=== PATIENT | female | born 1975 | race Caucasian/White ===

== ENCOUNTER 2024-06-05 14:24 | Emergency (ER) | payer MEDICAID, SELFPAY ==
--- NOTE | 2024-06-05 14:32 | EKG_ITS ---
[facility] Test Date: 2024-06-05 Pat Name: LAUREN BURRELL Department: Room: - Gender: Female [employer] Technician: : 1975 Requested By: Brian Arshad (ANITRA) Order Number: [id number] Reading MD: Brian Arshad (ACCOUNTS PAYABLE ASSISTANT) Measurements Intervals [place] Rate: 99 P: 23 AK: 132 QRS: -41 QRSD: 88 T: 17 QT: 340 QTc: 438 Interpretive Statements SINUS RHYTHM MARKED LEFT AXIS DEVIATION [QRS AXIS < -30] MINIMAL VOLTAGE CRITERIA FOR LVH, CONSIDER NORMAL VARIANT [MEETS CRITERIA IN ONE OF: R(aVL), S(V1), R(V5), R(V5/V6)+S(V1)] POSSIBLE ANTERIOR MYOCARDIAL INFARCTION , PROBABLY OLD [30 ms Q WAVE IN V3/V4, OR R < 0.2 mV IN V4] Compared to ECG 06/14/2022 07:12:14 Left-axis deviation now present Myocardial infarct finding now present /store/S0/[id number]/ecg/[id number].pdf
[2024-06-05 14:46] VITALS: BP 153/106; BP 163/109; PULSE 96; RESP 20; TEMP 37.1; O2SAT 99; BMI 42.8
--- NOTE | 2024-06-05 15:05 | XR_ITS ---
Examination: PA lateral chest 2 views TECHNIQUE: Upright PA lateral chest 2 views Exam date and time: June 05, 2024 1530 hours INDICATIONS: Onset chest pain today. FINDINGS: Early bilateral perihilar pneumonia Normal heart size The osseous structures are intact IMPRESSION: Early bilateral perihilar pneumonia
--- NOTE | 2024-06-05 15:05 | PD.EDRME ---
Rapid Medical Screening Exam RME Arrival date/time: 06/05/24 14:24 49-year-old female presents to the emergency department complains of palpitations Chief Complaint: Chest Pain Vital signs: Vital Signs Temperature 98.7 F 06/05/24 14:46 Pulse Rate 96 06/05/24 14:46 Respiratory Rate 20 06/05/24 14:46 Blood Pressure 153/106 H 06/05/24 14:46 Pulse Oximetry (%) 99 06/05/24 14:46 Oxygen Delivery Method Room Air 06/05/24 14:46
[2024-06-05 16:06] LABS: Basophils % (Auto) 0 % (0-2.5); Eosinophils # (Auto) 0.1 Thou/mm3 (0.0-0.5); Eosinophils % (Auto) 1 % (0-10); Hemoglobin 13.5 g/dL (12.0-16.0); Immature Granulocytes % (Auto) 0 % (0-0); Immature Granulocytes Auto 0.02 Thou/mm3 (0.00-0.00); Lymphocytes # (Auto) 2.4 Thou/mm3 (1.0-4.8); Lymphocytes % (Auto) 30 % (10-50); Mean Corpuscular HGB Conc 33.8 g/dl (31.0-37.0); Mean Corpuscular Hemoglobin 28.1 pg (25.0-35.0); Mean Corpuscular Volume 83 fL (80-100); Monocytes # (Auto) 0.5 Thou/mm3 (0.0-0.8); Monocytes % (Auto) 6 % (0-12); Neutrophils # (Auto) 4.9 Thou/mm3 (1.8-7.7); Neutrophils % (Auto) 62 % (37-80); Nucleated Red Blood Cell % 0 /100 WBC (0); Platelet Count 331 Thou/mm3 (140-440); RDW Standard Deviation 42.8 fL (36.4-46.3); White Blood Count 7.8 Thou/mm3 (3.6-11.0)
[2024-06-05 16:35] LABS: Alanine Aminotransferase 75 U/L (10-49); Albumin, Serum 4.9 gm/dL (3.5-5.0); Albumin/Globulin Ratio 1.7 (1.2-2.2); Alkaline Phosphatase 76 U/L (46-116); Anion Gap 9 (7-16); Aspartate Amino Transferase 41 U/L (0-34); BUN/Creatinine Ratio 17 Ratio (12-20); Bilirubin,Total 0.7 mg/dL (0.3-1.2); Blood Urea Nitrogen 15 mg/dL (9-23); Calcium 9.8 mg/dL (8.3-10.6); Calcium (Corrected) 9.8 mg/dL (8.5-10.1); Carbon Dioxide 29.4 mMol/L (20.0-31.0); Chloride 98 mMol/L (98-107); Creatinine (Component) 0.9 mg/dL (0.6-1.3); Estimated Creatinine Clearance 111.4 mL/min (>60); Globulin 2.9 gm/dL (2.3-3.5); Glucose 97 mg/dL (74-106); Osmolality,Calculated 272 (275-295); Potassium 3.6 mMol/L (3.4-5.1); Sodium 136 mMol/L (136-145); Thyroid Stimulating Hormone 1.41 uIU/mL (0.55-4.78); Total Protein 7.8 gm/dL (5.7-8.2); Troponin I < 0.002 ng/mL (0.0-0.045); eGFR > 60 See Note
--- NOTE | 2024-06-05 19:45 | PC.NURSE ---
NO ANSWER FOR MAIN ED
--- NOTE | 2024-06-05 20:05 | PC.NURSE ---
NO ANSWER FOR MAIN ED
== END 2024-06-05 20:07 | disposition left against medical advice (07) ==
LOC: SERX 15:50
PROVIDERS: Nurse Practitioner Primary Care; Emergency Provider Emergency Medicine; PCP Nurse Practitioner Family
DX: R07.9 Chest pain, unspecified (principal); R00.2 Palpitations; Z53.29 Procedure and treatment not carried out because of patient's decision for other reasons
CPT/HCPCS: 36415; 71046; 80053; 84439; 84443; 84484; 85025; 93005; 99281

== ENCOUNTER 2024-06-07 19:54 | Emergency (ER) | payer MEDICAID, SELFPAY ==
[2024-06-07 19:55] VITALS: BMI 42.8
[2024-06-07 21:02] VITALS: BP 156/103; PULSE 88; RESP 20; TEMP 37.2; O2SAT 97
--- NOTE | 2024-06-07 22:38 | EDNOTE_ITS ---
<Statement entered by Pina Eagle MD - 06/08/24 18:36> As co-signing physician, I was present and available for consult prn. I concur with the plan and care as documented by the midlevel provider. ED Back Injury Pain RME/HPI General Chief Complaint: Back Pain/Injury Stated Complaint: BACK PAIN Time Seen by Provider: 06/07/24 21:14 Arrival date/time: 06/07/24 19:54 49F with history of HTN presents to ED with several days of upper back pain and slight cough. Patient was here yesterday for this but eloped because she couldn't wait longer. Patient just wants her results. Limitations: no limitations Related Data Home Medications ?Medication ?Instructions ?Recorded ?Confirmed hydrochlorothiazide 25 mg tablet 25 mg PO DAILY 10/19/22 losartan 50 mg tablet 50 mg PO DAILY 06/14/2209/06 omeprazole 20 mg capsule,delayed 20 mg PO QAM 06/14/22 10/19/22 release venlafaxine 75 mg tablet,extended 75 mg PO DAILY 06/1410/19/22 release 24 hr ferrous sulfate 325 mg (65 mg 325 mg PO QDAY 10/19/22 10/19/22 iron) tablet (iron) metoprolol tartrate 50 mg tablet 50 mg PO BID 10/19/22 10/20/22 (Lopressor) Previous Rx's ?Medication ?Instructions ?Recorded phenazopyridine 200 mg tablet 200 mg PO TID PRN Painfu l 01/05/24 (Pyridium) urination #7 tabs ibuprofen 800 mg tablet 800 mg PO TID PRN pain #30 t abs 01/10/24 azithromycin 250 mg tablet See Rx Instructions PO .COM PLEX #6 06/07/24 tabs Allergies Allergy/AdvReac Type Severity Reaction Status Date / Time No Known Allergies Allergy Verified 06/05/24 14:25 Review of Systems Review of Systems Systems Reviewed: All systems reviewed, normal except as documented Constitutional Constitutional: Reports system reviewed and no additional complaints, except as documented, Denies fever(s) and Denies headache(s) ENT Ears, Nose, Mouth, and Throat: Denies disequilibrium and Denies headache(s) Cardiovascular Cardiovascular: Reports system reviewed and no additional complaints, except as documented, Denies chest pain and Denies dyspnea Respiratory Respiratory: Reports system reviewed and no additional complaints, except as documented, Reports as per HPI, Reports cough and Denies dyspnea Gastrointestinal Gastrointestinal: Reports system reviewed and no additional complaints, except as documented, Denies abdominal pain, Denies nausea and Denies vomiting Musculoskeletal Musculoskeletal: Reports as per HPI and Reports back pain Neurologic Neurologic: Reports system reviewed and no additional complaints, except as documented, Denies confusion, Denies disequilibrium and Denies headache(s) Psychiatric Psychiatric: Denies confusion Past Medical History Past Medical History NEUROLOGIC: Negative Neurological Disorders or Seizures CARDIAC: Positive Cardiac Disorders, Hypercholesterolemia, Hypertension and Varicose Veins; Negative Congestive Heart Failure RESPIRATORY: Negative Chronic Obstructive Pulmonary Disease (COPD) or Asthma GASTROINTESTINAL: Positive Gastrointestinal Disorders, Gastroesophageal Reflux Disease and Obesity; Negative Hepatitis GENITOURINARY: Negative Genitourinary Disorders or Renal Disease REPRODUCTIVE: Negative Previous Pregnancies MUSCULOSKELETAL: Negative Musculoskeletal Disorders ENDOCRINE: Negative Endocrine Disorders, Diabetes Mellitus Type 1 or Diabetes Mellitus Type 2 HEMATOLOGIC: Positive Blood Disorders and Anemia; Negative Sickle Cell Disease PSYCHO/SOCIAL: Positive Depression and Anxiety OTHER HISTORY: Positive Hospitalization (surgery), MRSA (right thigh years ago) and Chicken Pox; Negative Autoimmune Disease, Shingles, Blood Transfusions, Anesthesia Reactions, Measles, Mumps or Cancer Family History FAMILY HISTORY: Positive Family Respiratory Disorders, Family Cardiac Disorders and Family Surgery; Negative Family Psychiatric Problems, Family Gastrointestinal Problems, Family Cancer or Family Anesthesia Reaction Surgical History SURGICAL: Positive Adenoidectomy; Negative Ear Surgery Social History SMOKING STATUS: Never smoker ED Exam General Limitations: Present no limitations General appearance: Present alert and in no apparent distress Head Head exam: Present atraumatic Eye Eye exam: Present normal appearance, PERRL and EOMI ENT ENT exam: Present normal exam, normal oropharynx and mucous membranes moist Neck Neck exam: Present normal inspection, full ROM and trachea midline Chest Chest inspection: Present normal inspection and symmetric chest wall rise Respiratory Respiratory exam: Present normal lung sounds bilaterally Cardiovascular Cardiovascular exam: Present regular rate, normal rhythm and normal heart sounds Abdominal Exam Abdominal exam: Present soft and normal bowel sounds Extremities Exam Extremities exam: Present normal inspection and full ROM Back Exam Back exam: Present normal inspection and full ROM Neurological Exam Neurological exam: Present alert, oriented X3 and CN II-XII intact Psychiatric Psychiatric exam: Present normal affect and normal mood Skin Skin exam: Present warm, dry, intact and normal color Course Quality Measures none Vital Signs Vital signs: Vital Signs Temperature 99.0 F 06/07/24 21:02 Pulse Rate 88 06/07/24 21:02 Respiratory Rate 20 06/07/24 21:02 Blood Pressure 156/103 H 06/07/24 21:02 Pulse Oximetry (%) 97 06/07/24 21:02 Oxygen Delivery Method Room Air 06/07/24 21:02 O2 at 97% on RA and WNLs Back Pain / Injury MDM Narrative MDM Narrative:: 49F with history of HTN presents to ED with several days of upper back pain and slight cough. Patient was here yesterday for this but eloped because she couldn't wait longer. Patient just wants her results. Physical exam reveals clear ENT and lungs. RRR. Patient is afebrile, calm, and alert. From yesterday: EKG is NSR. CXR early PNA. No leukocytosis. CMP unremarkable. Trop neg. Patient wants ABX for possible early PNA. So given. Patient data External records reviewed:: [facility] previous records Clinical information provided by:: patient Social determinants that could affect healthcare access:: substance use Patient has the following chronic illnesses:: HTN How is presenting disease/condition affected by chronic disease/condition?: unef fected by Evaluation data The following diagnostics were reviewed and interpreted by me:: lab results, radiology exam(s) and EKG tracing(s) Lab and/or radiology exams considered but not ordered:: not ordered; yesterday's Interpretation Summary: above Medications / Prescriptions Medications or Prescriptions considered but not ordered:: not ordered Medication administrations:: n/a Consultations Consultation(s) initiated? (list below): No Diagnosis Differential diagnosis back pain/injury: lumbar radiculopathy, sciatica, strain of lumbar region, renal colic, pyelonephritis, thoracic back pain, AAA, discitis and other (ACS, PE, CAP) Most likely diagnosis given after review of the tests above:: CAP Admission Indicated Admission indicated?: not indicated Explain why admission is indicated or not indicated:: outpatient Admission Request Was there a request for admission?: No Disposition Plan Disposition Plan: Discharge Discharge Attestation Discharge Attestation: The patient and all family members were given an opportunity to ask questions and understood the discharge instructions. Discharge instructions specifically effects, indications for sooner follow up or return to the emergency department, and the expected course of current diagnosis. Patient condition: Stable Discharge Plan Plan Patient Disposition: HOME (Self Care) Disposition Comment: Stable Prescriptions/Referrals Prescriptions/Med Rec: New azithromycin 250 mg tablet See Rx Instructions .ROUTE .COMPLEX Qty: 6 0RF Rx Instructions: For 250 mg dose pack: take 500 mg today (day 1), then 250 mg for 4 days (days 2-5) No Action ferrous sulfate [iron] 325 mg (65 mg iron) Tablet 325 mg PO QDAY metoprolol tartrate [Lopressor] 50 mg Tablet 50 mg PO BID phenazopyridine [Pyridium] 200 mg tablet 200 mg PO TID PRN (Reason: Painful urination) Qty: 7 0RF ibuprofen 800 mg tablet 800 mg PO TID PRN (Reason: pain) Qty: 30 0RF losartan 50 mg tablet 50 mg PO DAILY omeprazole 20 mg capsule,delayed release(DR/EC) 20 mg PO QAM Patient Comments: TAKE 1 CAPSULE BY MOUTH EVERY DAY 30 MINUTES BEFORE MORNING MEAL FOR 90 DAYS hydrochlorothiazide 25 mg tablet 25 mg PO DAILY venlafaxine 75 mg tablet extended release 24hr 75 mg PO DAILY Problem List Clinical Impression: CAP (community acquired pneumonia) Patient/Caregiver Discharge Instructions Education Materials: ED Pneumonia (Adult) Additional Instructions: Please follow-up with PCP within 24-48 hours and return immediately if symptoms worsen. Print Language: Indonesian Stand Alone Forms: Patient Portal Info Letter YOHANA/NEVA Supervising Physician YOHANA/NEVA Supervising Physician: Dr. Eagle
== END 2024-06-07 21:39 | disposition home or self-care (01) ==
PROVIDERS: Emergency Provider Emergency Medicine
DX: J18.9 Pneumonia, unspecified organism (principal); M54.6 Pain in thoracic spine; I10 Essential (primary) hypertension
CPT/HCPCS: 99281